=== PATIENT | female | born 1975 | race Caucasian/White ===

== ENCOUNTER 2017-09-22 23:25 | Emergency (ER) | payer OTHER ==
[2017-09-22 23:39] VITALS: BP 124/77
[2017-09-23] MEDS ORDERED: IBUPROFEN 800 MG TABLET PO ONE (00:59)
--- NOTE | 2017-09-23 00:59 | ER Document Report ---
HPI - HPI Pain Level: 4 Context: Patient is a [id number] 42-year-old female presented emergency part of the chief complaint of right elbow pain. Patient states that she has had a knot on the tip of her elbow it is been there for about a year but she states is gotten worse over the past 2 days now with surrounding mild redness. She states that the area sore but denies any pain with range of motion. States that she works at [employer] where she is continually resting on her right elbow - REPRODUCTIVE Reproductive: DENIES: : Past Medical History - Social History Smoking Status: Smoker,Current Status Unk Family History: Reviewed & Not Pertinent Endocrine Medical History: Denies: Hx Diabetes Mellitus Type 1, Hx Diabetes Mellitus Type 2 Past Surgical History: Reports: Hx Cholecystectomy - Immunizations Immunizations up to date: Yes Hx Diphtheria, Pertussis, Tetanus Vaccination: Yes Vertical Provider Document - CONSTITUTIONAL Agree With Documented VS: Yes Notes: PHYSICAL EXAM GENERAL: Alert, interacts well. EXTREMITIES: Moves all 4 extremities spontaneously. Tenderness over the olecranon bursa with mild erythema. No pain with active range of motion or resistance to range of motion of the right upper extremity no edema, radial pulses 2/4 bilaterally. No cyanosis. NEUROLOGICAL: Alert and oriented x4. Normal speech. PSYCH: Normal affect, normal mood. SKIN: Warm, dry, normal turgor. No rashes or lesions noted. - INFECTION CONTROL TRAVEL OUTSIDE OF THE [place] IN LAST 30 DAYS: No Course - Re-evaluation Re-evalutation: 09/23/17 00:57 Patient is a 42-year-old female is hemodynamically stable, no acute distress and afebrile. Presentation is consistent with olecranon bursitis. No evidence of a septic joint, gout flare, dislocation, or fracture on exam. Vitals wnl. At this time, I do not see an indication for labs or further imaging. Will discharge with conservative measures, return precautions, and follow-up recommendations. - Vital Signs Vital signs: Temp Pulse Resp BP Pulse Ox 98.4 F 92 20 124/77 97 09/22/17 23:38 09/22/17 23:38 09/22/17 23:38 09/22/17 23:38 09/22/17 23:38 Discharge - Discharge Clinical Impression: Olecranon bursitis Qualifiers: Laterality: right Qualified Code(s): M70.21 - Olecranon bursitis, right elbow Condition: Good Disposition: HOME, SELF-CARE Instructions: Use of Jfkz-Tls-Gcafglk Ibuprofen ([facility]), Olecranon Bursitis ([facility]) Referrals: PHILLIP GILMORE [Primary Care Provider] - Follow up in 1 week
== END 2017-09-23 01:07 | disposition home or self-care (01) ==
LOC: ER 23:25
DX: M70.21 Olecranon bursitis, right elbow (principal); M25.521 Pain in right elbow
CPT/HCPCS: 99283

== ENCOUNTER 2017-10-19 23:09 | Emergency (ER) | payer OTHER ==
[2017-10-20] MEDS ORDERED: NAPROXEN 250 MG TABLET PO ONE (00:49)
--- NOTE | 2017-10-20 00:50 | ER Document Report ---
ED General - General Chief Complaint: Foot Injury Stated Complaint: RIGHT FOOT INJURY Time Seen by Provider: 10/20/17 00:17 Notes: Patient is a 42-year-old female without pertinent medical history who presents after striking the dorsal aspect of her right foot on a desk several hours prior to arrival. The patient reports that since striking her foot she has had a burning, aching, constant pain to the area of trauma. Nothing has been tried to improve the pain. She notes that touching the area or walking worsens the pain. No history of similar injury in the past. She has not seen her general doctor regarding today's concerns. She denies any additional areas of trauma or concerns today. TRAVEL OUTSIDE OF THE [place] IN LAST 30 DAYS: No - Related Data Allergies/Adverse Reactions: No Known Allergies Allergy (Unverified 07/22/15 18:35) Past Medical History - General Information source: Patient - Social History Smoking Status: Never Smoker Frequency of alcohol use: None Drug Abuse: None Lives with: Family Family History: Reviewed & Not Pertinent Endocrine Medical History: Denies: Hx Diabetes Mellitus Type 1, Hx Diabetes Mellitus Type 2 Renal/ Medical History: Denies: Hx Peritoneal Dialysis Past Surgical History: Reports: Hx Cholecystectomy - Immunizations Immunizations up to date: Yes Hx Diphtheria, Pertussis, Tetanus Vaccination: Yes Review of Systems - Review of Systems Notes: Constitutional: Negative for fever. Eyes: Negative for visual changes. ENT: Negative for facial injury Cardiovascular: Negative for chest injury. Respiratory: Negative for shortness of breath. Gastrointestinal: Negative for abdominal injury. Genitourinary: Negative for genital injury Musculoskeletal: Positive for right foot injury Skin: Negative for laceration/abrasions. Neurological: Negative for head injury. Physical Exam - Vital signs Vitals: Temp Pulse Resp BP Pulse Ox 98.2 F 106 H 16 136/90 H 97 10/19/17 23:52 10/19/17 23:52 10/19/17 23:52 10/19/17 23:52 10/19/17 23:52 Interpretation: Tachycardic Notes: PHYSICAL EXAMINATION: GENERAL: Well-appearing, well-nourished and in no acute distress. HEAD: Atraumatic, normocephalic. EYES: sclera anicteric, conjunctiva are normal. ENT: Moist mucous membranes. NECK: Normal range of motion LUNGS: Normal work of breathing HEART: 2+ DP pulses bilaterally EXTREMITIES: no pitting or edema. No cyanosis. Normal dorsi and plantar flexion. NEUROLOGICAL: No focal neurological deficits. Moves all extremities spontaneously and on command. PSYCH: Normal mood, normal affect. SKIN: Warm, Dry, normal turgor, mild ecchymosis and erythema over the distal dorsal surface of the right foot follow levels of the second and third toes Course - Re-evaluation Re-evalutation: 10/20/17 00:49 No evidence of a septic joint, gout flare, dislocation, or fracture on exam and imaging. Suspect soft tissue contusion. Vitals wnl. At this time, I do not see an indication for labs or further imaging. Will discharge with conservative measures, return precautions, and follow-up recommendations. - Vital Signs Vital signs: Temp Pulse Resp BP Pulse Ox 97.7 F 86 16 130/77 H 99 10/20/17 01:27 10/20/17 01:27 10/20/17 01:27 10/20/17 01:27 10/20/17 01:27 - Diagnostic Test Radiology reviewed: Image reviewed, Reports reviewed Radiology results interpreted by me: 10/20/17 03:04 Right foot x-ray: No acute fracture Discharge - Discharge Clinical Impression: Right foot injury Qualifiers: Encounter type: initial encounter Qualified Code(s): S99.921A - Unspecified injury of right foot, initial encounter Condition: Good Disposition: HOME, SELF-CARE Additional Instructions: Your x-ray does not show any acute fracture today. You likely have a soft tissue contusion. You should continue to take anti-inflammatories such as ibuprofen 600 mg every 6 hours. Continue to apply ice to the area is much your able. Please follow-up with your primary care physician if you do not have improving your symptoms in the next 1-2 weeks. Please return immediately if you develop weakness, numbness, spreading redness from the area, or any other symptoms that are concerning to you. Referrals: PHILLIP GILMORE [Primary Care Provider] - Follow up as needed
--- NOTE | 2017-10-20 00:51 | RADIOLOGY REPORT (SQ) ---
EXAM DESCRIPTION: XR FOOT 3 OR MORE VIEWS COMPLETED DATE/TME: 10/19/2017 00:00 CLINICAL HISTORY: 42 years, Female, Pain s/p injury COMPARISON: None. NUMBER OF VIEWS: Three TECHNIQUE: AP lateral and oblique views of the right foot were provided. LIMITATIONS: None. FINDINGS: No acute fracture or dislocation. IMPRESSION: No acute fracture or dislocation 2010 [facility]- All Rights Reserved
[2017-10-20 01:30] VITALS: BP 130/77
== END 2017-10-20 01:30 | disposition home or self-care (01) ==
LOC: ER 23:09
DX: S99.921A Unspecified injury of right foot, initial encounter (principal); M79.671 Pain in right foot; W22.03XA Walked into furniture, initial encounter; R00.0 Tachycardia, unspecified
CPT/HCPCS: 99283